=== PATIENT | male | born 1990 | race Two or more races ===

== ENCOUNTER 2018-08-16 11:25 | Emergency (ER) | payer OTHER ==
[2018-08-16 11:34] VITALS: TEMP 98.7; BMI 20.5
[2018-08-16] MEDS ORDERED: SODIUM CHLORIDE 1,000 ML IV ONE (12:49)
--- NOTE | 2018-08-16 12:53 | PDOC ---
History of Present Illness - General Chief Complaint: Lightheaded Stated Complaint: DIZZINESS, HEADACHE Time Seen by Provider: 08/16/18 12:03 History Source: Patient Exam Limitations: No Limitations - History of Present Illness Initial Comments: 08/16/18 12:49 28y M no pmhx presents with complaint of eeling lightheadedness and fever. pt states for th epast 5 days, since touring [facility], he has felt subjective fever and lightheadedness. pt denies vertigo, headache, ansal congestion, n/v, abd pain, cp, dysuria, diarrhea, melena, aer pain, cough. pt [facility], notse that he had several medical forms/vaccinatoins that he had to make sure was performed prior to starting at [facility] - ntes that he had most of them when he was young. [facility] Past History - Past Medical History Allergies/Adverse Reactions: Allergies Allergy/AdvReac Type Severity Reaction Status Date / Time No Known Allergies Allergy Verified 08/16/18 11:30 Home Medications: Ambulatory Orders NK [No Known Home Medication] 08/16/18 COPD: No Other medical history: PT DENIES - Suicide/Smoking/Psychosocial Hx Smoking History: Never smoked Have you smoked in the past 12 months: No Information on smoking cessation initiated: No Hx Alcohol Use: No Review of Systems - Review of Systems Able to Perform ROS?: Yes Comments:: 08/16/18 12:55 Constitutional - + fever, no reported Chills, HEENT: no reported vision changes, sore throat Respiratory: no reported cough, sob, hemoptysis Cardiac: + light headedness, no reported chest pain, palpitations, leg swelling Abd/GI: no reported abd pain, nausea, vomiting, blood per rectum, melena, diarrhea : no reported dysuria, frequency, discharge Musculskelatal - no reported back pain, joint swelling skin - no reported bruising, erythema, rash neurological: no reported headache, numbness, focal weakness, tingling, ataxia, hematologic: no reported easy bruising, easy bleeding *Physical Exam - Vital Signs Last Vital Signs Temp Pulse Resp BP Pulse Ox 98.7 F 104 H 20 145/85 98 08/16/18 11:25 08/16/18 11:25 08/16/18 11:25 08/16/18 11:25 08/16/18 11:25 - Physical Exam Comments: 08/16/18 12:56 GENERAL: The patient is awake, alert, and fully oriented, Nontoxic - in no acute distress. HEAD: Normocephalic, atraumatic. EYES: extraocular movements intact, sclera anicteric, conjunctiva clear. ENT: Normal voice, dry mucous membranes. NECK: Normal range of motion, supple LUNGS: Breath sounds equal, clear to auscultation bilaterally. No wheezes, no rhonchi, no rales. HEART: slightly tachcyardic, normal S1 and S2 without murmur, rub or gallop. ABDOMEN: Soft, nontender, normoactive bowel sounds. No guarding, no rebound. . No CVA tenderness EXTREMITIES: Normal range of motion, no edema. No clubbing or cyanosis. No cords, erythema, or tenderness. NEUROLOGICAL: No facial assymetry, Normal speech, PSYCH: Normal mood, normal affect. SKIN: Warm, Dry, normal turgor, Heart Score/ECG Review - ECG Impressions Comment:: 08/16/18 13:40 Twelve-lead EKG was performed and reviewed by me. There is normal sinus rhythm with a rate of 107 The axis is normal. The intervals are normal. There is normal R wave progression There are no ST or T wave abnormalities. sinus tachycardia ED Treatment Course - LABORATORY CBC & Chemistry Diagram: 08/16/18 13:02 08/16/18 13:02 Medical Decision Making - Medical Decision Making 08/16/18 12:56 will obtain basic blood work to r/o anemia, metabolic derangement will give fluids as pt is slightly tachycardic, suspect due to dehydration as he has mildly dry mmm 08/16/18 14:01 llabs reviewed pt feeling improved will dc the pt with pmd fu return precautions were discussed I discussed the physical exam findings, ancillary test results and final diagnoses with the patient. I answered all of the patient's questions. The patient was satisfied with the care received and felt comfortable with the discharge plan and treatment plan. The patient will call their primary care physician within 24 hours to arrange follow-up and will return to the Emergency Department with any new, persistent or worsening symptoms. *DC/Admit/Observation/Transfer Diagnosis at time of Disposition: Dizziness - Discharge Dispostion Disposition: HOME Condition at time of disposition: Improved Decision to Admit order: No - Referrals Referrals: [facility] [place] [Provider Group] - Patient Instructions Printed Discharge Instructions: DI for Dizziness-Nonvertigo Additional Instructions: Return to the emergency department immediately with ANY new, persistent or worsening symptoms. Make [place] you sare staying well hydrated and sleeping sufficiently. You MUST call and follow up with your primary doctor in 3-4 days for further evaluation of your symptoms. Results were discussed with you. Please make sure your doctor reviews the results of your emergency evaluation. - Post Discharge Activity
[2018-08-16 13:23] LABS: BASO % 0.4 % (0-2.0); EOS % 0.3 % (0-4.5); HEMATOCRIT 47.5 % (35.4-49); HEMOGLOBIN 14.9 GM/dl (11.7-16.9); LYMPH % 14.9 % (8-40); MCHC 31.5 g/dl (32.0-35.9); MEAN CELL VOLUME 73.3 fl (80-96); MEAN PLT VOLUME 11.8 fl (7.5-11.1); MONO % 5.1 % (3.8-10.2); NEUT % 79.3 % (42.8-82.8); PLATELET COUNT 253 K/MM3 (134-434); RBC 6.47 M/mm3 (4.00-5.60); RDW 14.6 % (11.9-15.9); WHITE BLOOD COUNT 10.3 K/mm3 (4.0-10.8)
[2018-08-16 13:25] LABS: ADD RBC MORPHOLOGY YES
[2018-08-16 13:37] LABS: ALBUMIN 5.2 g/dl (3.5-5.0); ALK PHOS 53 U/L (32-92); ANION GAP 7 MMOL/L (8-16); BLOOD UREA NITROGEN 13 mg/dl (7-18); CALCIUM 9.8 mg/dl (8.4-10.2); CHLORIDE 101 mmol/L (98-107); CO2 26 mmol/L (22-28); CREATININE 0.8 mg/dl (0.6-1.3); GLUCOSE,RANDOM 85 mg/dl (74-106); SGOT/AST 30 U/L (10-42); SGPT/ALT 21 U/L (10-40); SODIUM 134 mmol/L (136-145); TOT PROT 7.9 g/dl (6.4-8.3)
[2018-08-16 14:14] VITALS: BP 127/72; PULSE 84
[2018-08-16 14:23] LABS: OVALOCYTE 1+
[2018-08-16 14:24] LABS: PLATELET ESTIMATE ADEQUATE; TEAR DROP CELLS OCCASIONAL
--- NOTE | 2018-08-17 13:15 | EKG ---
Test Reason : Blood Pressure : / mmHG Vent. Rate : 107 BPM Atrial Rate : 107 BPM P-R Int : 118 ms QRS Dur : 088 ms QT Int : 296 ms P-R-T Axes : 079 084 047 degrees QTc Int : 395 ms SINUS TACHYCARDIA POSSIBLE LEFT ATRIAL ENLARGEMENT BORDERLINE ECG NO PREVIOUS ECGS AVAILABLE Confirmed by MD TAMMY, DORENE ([id number]) on 08/17/2018 1:15:19 PM Referred By: ROULA MOBLEY Confirmed By:DORENE MUNOZ MD
== END 2018-08-16 14:13 | disposition home or self-care (01) ==
LOC: FER 11:25
PROC: 3E0337Z Introduction of Electrolytic and Water Balance Substance into Peripheral Vein, Percutaneous Approach (ICD-10-PCS; principal; 2018-08-16)
DX: R42 Dizziness and giddiness (principal)
CPT/HCPCS: 36415; 80053; 85025; 93005; 99284-25; J7030